=== PATIENT | male | born 1990 | race Caucasian/White ===

== ENCOUNTER 2024-09-07 15:19 | Emergency (ER) | payer OTHER, SELFPAY ==
[2024-09-07 15:21] VITALS: BP 127/88; PULSE 64; RESP 14; TEMP 37; O2SAT 93; BMI 35.2
--- NOTE | 2024-09-07 15:24 | ED_ITS ---
HPI - Back Pain/Injury 2 General: Chief Complaint: Back Pain/Injury Stated Complaint: back pain Time Seen by Provider: 09/07/24 15:20 Source: patient and EMS Mode of arrival: EMS Limitations: no limitations History of Present Illness: Patient is a 34-year-old male presents to ED today with complaint of back injury. Patient states just prior to arrival he was walking on stairs when he accidentally slipped and fell. He states his back struck the corner of the stair. Patient states he was able to get to his knees but could not stand up secondary to pain. Upon arrival he is complaining of mid to lower back pain. He is having a small amount of paresthesias to his left leg. He was given 100 mcg fentanyl for a zofran route. He denies striking his head or LOC. No other complaints at this time. This did occur at work-he works for [employer]. MD elicited complaint: back pain Pertinent past history: recent trauma Onset (ago): hour(s) Timing: constant Severity: severe Similar Symptoms Previously: No Location: lumbar spine, thoracic spine and right lower back Radiation: none Exacerbating factors: movement Relieving factors: none Context: fall Associated symptoms: Reports difficulty walking; Deny abdominal pain, chills, dysuria, fatigue, fever(s) or hematuria Work related injury: Yes Related Data Previous Rx's Medication Instructions Recorded dexamethasone 6 mg tablet 6 mg PO DAILY #6 tabs 09/07/24 hydrocodone 7.5 mg-acetaminophen 1 tab PO .q4-6 PRN pain #20 tabs 09/07/24 325 mg tablet ibuprofen 800 mg tablet 800 mg PO Q8H PRN pain #20 tabs 09/07/24 Allergies Allergy/AdvReac Type Severity Reaction Status Date / Time No Known Allergies Allergy Verified 09/07/24 15:33 Review of Systems 2 Const: Denies: fever(s), chills, body aches, fatigue or malaise Card: Denies: chest pain Resp: Denies: dyspnea GI: Denies: abdominal pain : Denies: flank pain, dysuria, hematuria or testicular pain Musc: Reports: back pain; Denies: neck pain, extremity pain, extremity swelling, joint pain or joint swelling Neuro: Reports: sensory changes (feels like his leg leg is a little numb) and difficulty walking; Denies: headache(s) or weakness in extremities Physical Exam 2 Const: COMMON NORMALS: no acute distress, patient oriented x3, no limitations, alert and well nourished GENERAL APPEARANCE: cooperative NUTRITIONAL APPEARANCE: overweight ORIENTATION/CONSCIOUSNESS: Yes awake, Yes oriented to person, Yes oriented to place and Yes oriented to time HENMT: COMMON NORMALS: normocephalic and atraumatic HEAD & SCALP: normal to inspection, normocephalic and atraumatic Eye: COMMON NORMALS: Equal, round and reactive pupils present and EOMs intact bilaterally GENERAL EYE: appearance normal, both eyes and all related structures and normal light reflex PUPIL: Yes Equal, round and reactive pupils present DIRECT OPHTHALMOSCOPY: Yes normal light reflex Neck/C-Spine: COMMON NORMALS: full ROM GENERAL: Yes normal visual inspection CERVICAL SPINE: Yes cervical ROM normal, No Cervical spine tenderness, No step off deformity and No Paracervical muscle tenderness Chest: COMMONS NORMALS: normal inspection of the chest and normal palpation of entire chest wall Resp: COMMON NORMALS: normal respiratory effort and clear to auscultation bilaterally AUSCULTATION: clear to auscultation bilaterally Cardio: COMMON NORMALS: regular rate and regular rhythm RATE: regular rate RHYTHM: regular rhythm GI: COMMON NORMALS: Normal to inspection, nondistended, normoactive bowel sounds present, Soft to palpation, non-tender, No hepatosplenomegaly present and no masses PALPATION: Yes Soft to palpation and Yes No hepatosplenomegaly present : COMMON NORMALS: Yes no CVA tenderness BLADDER/KIDNEY EXAM: Yes no CVA tenderness Back/Pelvis: COMMON NORMALS: no CVA tenderness LUMBAR SPINE/LOWER BACK: Yes lumbar spinal tenderness and Yes paraspinal muscle tenderness Lumbar paraspinal muscle tenderness: right PELVIS: Yes buttocks normal and No sciatic notch tenderness SACROILIAC JOINTS: Yes SI joints normal COCCYX: no tenderness BACK IMAGE (MALE): 1. TTP/abrasion Extremity: COMMON NORMALS: normal to inspection, capillary refill normal, no joint enlargement, no clubbing, cyanosis or edema, no calf tenderness and no pedal edema GENERAL: Yes normal exam except as noted Neuro: COMMON NORMALS: patient oriented x3, moves all extremities and no focal motor deficits SENSORIUM/ORIENTATION: Yes alert, Yes oriented to person, Yes oriented to place and Yes oriented to time GAIT: Yes Unable to assess gait MOTOR EXAM: 5/5 motor strength present throughout Course 2 Vital Signs: Vital signs: Vital Signs Temperature 98.6 F 09/07/24 15:21 Pulse Rate 59 L 09/07/24 16:40 Respiratory Rate 16 09/07/24 16:40 Blood Pressure 127/88 09/07/24 15:21 Pulse Oximetry 97 09/07/24 16:40 Oxygen Delivery Me thod Room Air 09/07/24 16:40 MDM - Back Pain/Injury Medical Decision Making Patient has acute fractures of his right L1-L3 transverse processes. Pain was controlled here and he was easily ambulated without difficulty or assistance. He feels like the mild paresthesias that he had to his left leg upon presentation are now gone. He has no acute neurologic deficits at time of discharge. Recommend he reach out to his HR department as this did happen while at work. I will have him follow-up with Dr. Pérez. Physical therapy will come and fit him for LSO brace. Medical Records I reviewed the patient's medical records. Labs Radiology Impressions Lumbar Spine CT 09/07/24 15:29 IMPRESSION: Acute fractures of the right L1-L3 transverse processes. Thoracic Spine CT 09/07/24 15:29 IMPRESSION: No acute osseous findings in the thoracic spine. All radiology interpretation(s) finalized by discharge Discharge Plan Discharge Patient Disposition: Home Clinical Impression: Multiple transverse process fractures Condition: Stable Prescriptions: New ibuprofen 800 mg tablet 800 mg PO Q8H PRN (Reason: pain) Qty: 20 0RF dexamethasone 6 mg tablet 6 mg PO DAILY Qty: 6 0RF hydrocodone-acetaminophen 7.5-325 mg tablet 1 tab PO .q4-6 PRN (Reason: pain) Qty: 20 0RF Discharge Orders: Discharge ED (Routine); Ordered 09/07/24 Ordered By: Lisandra Hubbard Referrals: Frantz Renteria MD [Primary Care Provider] - Patient Instructions: Transverse Process Fracture (ED), Opioid Safety, Pain Management Activity Restrictions/Additional Instructions: As we discussed, you need to reach out to your human resource department as this is a Worker's Comp injury. Case management should reach out to you shortly to set you up with Dr. Pérez who is our orthopedic/spinal specialist for further evaluation of your lumbar transverse process fractures. You need to use your LSO brace is much as possible and avoid twisting, bending, lifting as this can exacerbate your back pain. You may take your prescription medications as directed. The hydrocodone can be used sparingly for severe pain. Do not drive if taking opiate pain medication. Stand Alone Forms: Work/School Release Coding Level of Care Code ED Warehouse Logistics Manager for Martin Ramos
--- NOTE | 2024-09-07 15:29 | CTR_ITS ---
PROCEDURE INFORMATION: Exam: CT Thoracic Spine Without Contrast Exam date and time: 09/07/2024 3:55 PM Age: 34 years old Clinical indication: Injury or trauma; Fall; Blunt trauma (contusions or hematomas) TECHNIQUE: Imaging protocol: Computed tomography of the thoracic spine without contrast. Radiation optimization: All CT scans at this facility use at least one of these dose optimization techniques: automated exposure control; mA and/or kV adjustment per patient size (includes targeted exams where dose is matched to clinical indication); or iterative reconstruction. COMPARISON: CT lumbar spine wo con* [id number] 09/07/2024 3:55 PM RADIATION DOSE METRICS: Total DLP (mGy-cm): 1085.4 FINDINGS: Bones/joints: No acute fracture visualized within the thoracic spine. Spinal alignment is intact. Minimal rightward curvature of the thoracic spine. Mild multilevel endplate degenerative changes. Vertebral body heights are maintained. No severe spinal canal stenosis or significant neural foraminal narrowing. Partially imaged right L1 transverse process fracture, better assessed on accompanying CT lumbar spine, reported separately. Soft tissues: Unremarkable. Lungs: Mild dependent atelectasis in bilateral lower lobes. CT/CT thoracic spin wo con* [id number] IMPRESSION: No acute osseous findings in the thoracic spine.
--- NOTE | 2024-09-07 15:29 | CTR_ITS ---
PROCEDURE INFORMATION: Exam: CT Lumbar Spine Without Contrast Exam date and time: 09/07/2024 3:55 PM Age: 34 years old Clinical indication: Injury or trauma; Fall; Blunt trauma (contusions or hematomas); Additional info: Trauma/pain TECHNIQUE: Imaging protocol: Computed tomography of the lumbar spine without contrast. Radiation optimization: All CT scans at this facility use at least one of these dose optimization techniques: automated exposure control; mA and/or kV adjustment per patient size (includes targeted exams where dose is matched to clinical indication); or iterative reconstruction. COMPARISON: CT thoracic spin wo con* [id number] 09/07/2024 3:55 PM RADIATION DOSE METRICS: Total DLP (mGy-cm): 887.2 FINDINGS: Bones/joints: Acute mildly displaced fractures of the right transverse processes at L1-L2 and a nondisplaced fracture of the right transverse process at L3. The vertebral body heights are maintained. Mild disc bulge, ligamentum flavum thickening, and mild bilateral facet arthropathy at L4-L5 and L5-S1 resulting in mild spinal stenosis. Mild bilateral neural foraminal narrowing at L4-L5. Soft tissues: Unremarkable. CT/CT lumbar spine wo con* [id number] IMPRESSION: Acute fractures of the right L1-L3 transverse processes.
[2024-09-07 15:34] VITALS: RESP 16; O2SAT 96
[2024-09-07] MEDS: morphine 4 mg/mL SDV 1 mL IVP (15:34)
[2024-09-07] MEDS: dexamethasone 10 mg/mL INJ IVP (15:38)
[2024-09-07 16:29] VITALS: PULSE 60; RESP 16; O2SAT 97
[2024-09-07] MEDS: ketorolac 30 mg/mL INJ IVP (16:38)
[2024-09-07 16:40] VITALS: PULSE 59; RESP 16; O2SAT 97
--- NOTE | 2024-09-08 08:24 | DCPLANNER ---
Message sent to Ortho for follow up - Multiple Transverse process fxs
== END 2024-09-07 17:40 | disposition home or self-care (01) ==
PROVIDERS: Emergency Provider Physician Assistant; Family Provider Family Medicine; PCP Family Medicine
DX: S32.019A Unspecified fracture of first lumbar vertebra, initial encounter for closed fracture (principal); S32.029A Unspecified fracture of second lumbar vertebra, initial encounter for closed fracture; S32.039A Unspecified fracture of third lumbar vertebra, initial encounter for closed fracture; W10.9XXA Fall (on) (from) unspecified stairs and steps, initial encounter
CPT/HCPCS: 72128; 72131; 96374; 96375; 97760; 99285; J1100; J1885; J2270; L0637

== ENCOUNTER → 2024-09-15 08:26 | Outpatient (BNVA) | payer OTHER, SELFPAY | PROVIDERS: Family Provider Family Medicine; PCP Family Medicine; Referring Provider Physician Assistant; Visit Provider Orthopaedic Surgery | DX: S32.019A Unspecified fracture of first lumbar vertebra, initial encounter for closed fracture (principal); S32.029A Unspecified fracture of second lumbar vertebra, initial encounter for closed fracture; S32.039A Unspecified fracture of third lumbar vertebra, initial encounter for closed fracture; W10.9XXA Fall (on) (from) unspecified stairs and steps, initial encounter | CPT/HCPCS: 72100 ==

== ENCOUNTER → 2024-10-13 09:22 | Outpatient (BNVA) | payer OTHER, SELFPAY | PROVIDERS: Family Provider Family Medicine; PCP Family Medicine; Visit Provider Orthopaedic Surgery | DX: M54.9 Dorsalgia, unspecified (principal) | CPT/HCPCS: 72100 ==

== ENCOUNTER 2024-10-22 14:03 | Emergency (ER) | payer OTHER, SELFPAY ==
--- NOTE | 2024-10-22 14:04 | XR_ITS ---
WS: [id number] Left foot, 4 views including lateral view of the toes, 10/22/2024 Clinical Data: injury Comparison: None. Findings: No fractures or dislocations are seen. No bone destruction or erosion is noted. The joint spaces and soft tissues are normal. The lateral view of the toes show no fractures. XR/XR foot LT min 3V* [id number] Impression: Negative left foot.
[2024-10-22 14:42] VITALS: BP 133/90; PULSE 82; RESP 14; TEMP 36.7; O2SAT 98; BMI 36.6
--- NOTE | 2024-10-22 15:24 | PC.PHAR ---
patient just finished 10 day supply of hydrocodone removed from list
--- NOTE | 2024-10-22 15:59 | ED_ITS ---
HPI - Extremity Problem General: Chief complaint: Extremity Injury, Lower Stated complaint: something in left foot Time Seen by Provider: 10/22/24 15:30 Source: patient Mode of arrival: ambulatory Limitations: no limitations History of Present Illness: Patient is a 34-year-old male that presents to the emergency department with a foreign body in the second toe of the left foot. He states this occurred about 2 days ago when he was walking with his shoes. He is unsure of what the foreign body is but does not think that it is metal. He thinks it may be a wooden splinter. He denies any fever or chills. He denies any redness or red streaking. He denies any numbness or tingling. Patient is unsure of when his last tetanus shot was but refuses tetanus immunization today. I did explain to the patient that if tetanus gets to a certain point we will be unable to stop it. He expressed understanding but still declines tetanus immunization at this time. He presents to the emergency department for further evaluation and treatment. Associated symptoms: Deny chest pain or fever(s) Related Data Previous Rx's Medication Instructions Recorded cephalexin 500 mg capsule 500 mg PO Q6H #20 caps 10/22/24 Allergies Allergy/AdvReac Type Severity Reaction Status Date / Time No Known Allergies Allergy Verified 10/22/24 14:47 Review of Systems Const: Denies: fever(s) or chills Eyes: Denies: change in vision ENMT: Denies: throat pain Card: Denies: chest pain Resp: Denies: dyspnea or wheezing GI: Denies: abdominal pain, nausea or vomiting : Denies: flank pain Musc: Denies: neck pain or back pain Skin/Breast: Reports: other (Soft tissue foreign body in the distal second toe left foot) Neuro: Denies: headache(s), numbness in extremities or weakness in extremities Psych: Denies: anxiety or depression Endo: Denies: change in body appearance Chuckie/Lymph: Denies: easy bruising or easy bleeding All/Imm: Denies: urticaria or tongue swelling PFSH ED 2 PFSH: Social History Smoking and tobacco/nicotine status: unknown if used tobacco/nicotine Physical Exam Const: COMMON NORMALS: no acute distress and patient oriented x3 HENMT: COMMON NORMALS: normocephalic, atraumatic and Normal external nose present HEAD & SCALP: normocephalic and atraumatic NOSE: Normal external nose present GENERAL EAR: hearing not grossly impaired Eye: COMMON NORMALS: conjunctivae normal CONJUNCTIVA: Yes conjunctivae normal Cardio: COMMON NORMALS: regular rate and regular rhythm RATE: regular rate RHYTHM: regular rhythm Neuro: COMMON NORMALS: patient oriented x3 Procedures Foreign Body Removal Site: left and other (2nd toe) Description of foreign body: other (wooden sliver) Sedation/Analgesia: other (1% plain lidocaine, digital block) Technique: removal with forceps (and an 18 gauge needle was used, partial removal) Confirmed by:: direct visualization Post-procedure exam: awake, alert Neurovascular: normal capillary fill and other (there is still retained foreign body) Course Vital Signs: Vital signs: Vital Signs Temperature 98.1 F 10/22/24 14:42 Pulse Rate 82 10/22/24 14:42 Respiratory Rate 14 10/22/24 14:42 Blood Pressure 133/90 10/22/24 14:42 Pulse Oximetry 98 10/22/24 14:42 MDM - Extremity (Nontraumatic) Medical Decision Making Patient was advised of the x-ray and exam findings. There was a small piece of, what appeared to be a wooden sliver, that was removed but the patient has a probable retained foreign body. I recommended he should follow-up with podiatry, Dr. Kaur, for further evaluation and treatment. Will place the patient on Keflex by mouth for the next 5 days to help reduce the risk of infection. He was advised to return to the emergency department with any worsening symptoms such as fever, red streaking, pus draining and follow-up with podiatry for further evaluation and treatment. The patient expressed understanding. Lab Data Radiology Impressions Foot X-Ray 10/22/24 14:04 Impression: Negative left foot. All radiology interpretation(s) finalized by discharge Critical Care Time Critical Care Time: Critical Care Time: No Discharge Plan Discharge Patient Disposition: Home Clinical Impression: Retained foreign body fragment Condition: Stable Prescriptions: New cephalexin 500 mg capsule 500 mg PO Q6H Qty: 20 0RF Discharge Orders: Discharge ED (Routine); Ordered 10/22/24 Ordered By: Fan Bush Referrals: Frantz Renteria MD [Primary Care Provider] - Raphael Kaur DPM [Physician] - Patient Instructions: Opioid Safety, Pain Management, Soft Tissue Foreign Body (ED) Activity Restrictions/Additional Instructions: Take medications as directed. Your prescriptions were sent electronically to [facility] pharmacy in [place]. Use [id number] antibiotic ointment and a sterile dressing (Band-Aid) daily as directed until follow-up. Follow-up with podiatry for further evaluation and treatment. Call for an appointment. Return to the emergency department with any worsening symptoms such as fever, red streaking, pus draining or any other worsening symptoms. Coding Level of Care Code ED Sponge Hooker for Martin Ramos
[2024-10-22] MEDS: lidocaine 1% 10 ML INJ SUBCUT (16:29)
[2024-10-22 16:54] VITALS: BP 156/99; PULSE 71; O2SAT 98
== END 2024-10-22 16:54 | disposition home or self-care (01) ==
PROVIDERS: Emergency Provider Physician Assistant; PCP Family Medicine
DX: S91.342A Puncture wound with foreign body, left foot, initial encounter (principal); X58.XXXA Exposure to other specified factors, initial encounter
CPT/HCPCS: 12345; 73630; 99283

== ENCOUNTER → 2024-11-24 13:23 | Outpatient (BNVA) | payer OTHER, SELFPAY | PROVIDERS: PCP Family Medicine; Visit Provider Orthopaedic Surgery | DX: S32.019A Unspecified fracture of first lumbar vertebra, initial encounter for closed fracture (principal); S32.029A Unspecified fracture of second lumbar vertebra, initial encounter for closed fracture; S32.039A Unspecified fracture of third lumbar vertebra, initial encounter for closed fracture; W10.9XXA Fall (on) (from) unspecified stairs and steps, initial encounter | CPT/HCPCS: 72100 ==

== ENCOUNTER 2025-07-13 15:42 | Emergency (ER) | payer SELFPAY ==
[2025-07-13 15:46] VITALS: BP 147/93; PULSE 89; RESP 18; TEMP 36.7; O2SAT 98
--- NOTE | 2025-07-13 16:10 | ED_ITS ---
HPI - Neck Pain/Injury General: Chief Complaint: General Medical Stated Complaint: Neck pain Time Seen by Provider: 07/13/25 16:00 Source: patient Mode of arrival: ambulatory Limitations: no limitations History of Present Illness: Patient is a 34-year-old male who presents to ED today with a complaint of right sided neck pain that began earlier today while at work. He states he felt normal when he woke up. He denies any obvious injury or trauma but does state he was lifting some type of garage door when it caught and fariha his arm/shoulders. Patient states he is not having any radicular pain into his upper extremities. Denies numbness, tingling, loss of sensation or weakness to his arms. He is not complaining of a severe headache. No recent illness. No fevers. Patient states he is not having any pain if he is not moving his neck. MD complaint: neck pain Onset (ago): hour(s) Place: home and work Radiation: right lateral Severity: moderate Duration: constant Relieving factors: immobilization Exacerbating factors: movement of extremity and movement of neck Associated symptoms: Reports no associated symptoms; Denies headache(s) Treatments prior to arrival: none Related Data Previous Rx's ?Medication ?Instructions ?Recorded ibuprofen 800 mg tablet 800 mg PO Q8H PRN pain #20 t abs 07/13/25 methocarbamol 500 mg tablet 1,000 mg (2 x 500 mg) PO Q 8H #30 07/13/25 tabs methylprednisolone 4 mg tablets in See Rx Instructions PO .COMPLEX 07/13/25 a dose pack (Medrol (Fernando)) #21 ea Allergies Allergy/AdvReac Type Severity Reaction Status Date / Time No Known Allergies Allergy Verified 11/24/24 13:38 Review of Systems Const: Denies: fever(s) or body aches Eyes: Denies: change in vision ENMT: Denies: odynophagia or ear or mastoid pain Musc: Reports: neck pain Neuro: Denies: headache(s), numbness in extremities, weakness in extremities, sensory changes, confusion, behavioral changes or difficulty communicating thoughts PFSH ED PFSH: Social History Smoking and tobacco/nicotine status: former use of tobacco/nicotine Physical Exam Const: COMMON NORMALS: no acute distress, average body habitus, patient oriented x3, no limitations, healthy appearing, alert and well nourished GENERAL APPEARANCE: cooperative ORIENTATION/CONSCIOUSNESS: Yes awake, Yes oriented to person, Yes oriented to place and Yes oriented to time HENMT: COMMON NORMALS: normocephalic and atraumatic HEAD & SCALP: normal to inspection, normocephalic and atraumatic FACE & SINUS: normal facial exam and face symmetric Neck/C-Spine: COMMON NORMALS: no lymphadenopathy and no meningeal signs GENERAL: Yes normal visual inspection, No anterior neck swelling and No submandibular swelling CERVICAL SPINE: Yes cervical ROM abnormal, Yes pain with cervical ROM, No Cervical spine tenderness, Yes Paracervical muscle tenderness right and No Paracervical spasm OTHER: pain with right rotational movement and lateral movements of neck; has fairly normal flexon/extension; negative Kernig's and Brudzinski's pain is reproducible with movement and palpation to R side of neck Back/Pelvis: COMMON NORMALS: thoracic and lumbar spine normal to inspection, no thoracic nor lumbar tenderness and thoraco-lumbar ROM normal Extremity: COMMON NORMALS: normal to inspection and full ROM GENERAL: Yes normal exam except as noted Neuro: COMMON NORMALS: patient oriented x3, moves all extremities, no focal motor deficits and no sensory deficits noted SENSORIUM/ORIENTATION: Yes alert, Yes oriented to person, Yes oriented to place and Yes oriented to time MENINGEAL SIGNS: Yes no meningeal signs Course Vital Signs: Vital signs: Vital Signs Temperature 98.1 F 07/13/25 15:46 Pulse Rate 89 07/13/25 15:46 Respiratory Rate 18 07/13/25 15:46 Blood Pressure 147/93 07/13/25 15:46 Pulse Oximetry 98 07/13/25 15:46 Oxygen Delivery Me thod Room Air 07/13/25 15:46 MDM - Neck Pain/Injury Medical Decision Making Symptoms at this time seem consistent with a right sided cervical sprain/strain/spasm. Patient to be treated with anti-inflammatories, steroids, muscle relaxers. He was given signs and symptoms that should prompt a return emergency evaluation. Otherwise he can follow-up with primary care in 1 to 2 weeks. Differential Diagnosis Likely disc disorder of cervical region, cervical radiculopathy, vertebral artery dissection and strain of neck muscle Medical Records I reviewed the patient's medical records. No radiology studies performed this visit Discharge Plan Discharge Patient Disposition: Home Clinical Impression: Neck pain on right side Condition: Stable Prescriptions: New methocarbamol 500 mg tablet 1,000 mg PO Q8H Qty: 30 0RF ibuprofen 800 mg tablet 800 mg PO Q8H PRN (Reason: pain) Qty: 20 0RF methylprednisolone [Medrol (Fernando)] 4 mg tablets,dose pack See Rx Instructions .ROUTE .COMPLEX Qty: 21 0RF Rx Instructions: orally per package directions Discharge Orders: Discharge ED (Routine); Ordered 07/13/25 Ordered By: Lisandra Hubbard Referrals: Frantz Renteria MD [Primary Care Provider, [facility]] Patient Instructions: Cervical Strain (DC), Neck Pain (ED), Acute Neck Pain (ED), Patient Portal & Real Instructions Activity Restrictions/Additional Instructions: As we discussed, we will try treating neck discomfort with steroids, anti- inflammatories, muscle relaxers. You may also try ice and heat as well as topical therapies such as [id number] Biofreeze. Please follow-up with primary care in one to 2 weeks if symptoms do not seem to be improving. As we discussed, we need to return to the emergency department for onset of severe headache, worsening neck pain or neck stiffness, fevers, generally feeling worse or unwell, or any other concerns you may have. Print Language: Swedish Coding Level of Care Code ED Interdisciplinary Professor for Martin Ramos
--- OUTSIDE RECORDS SUMMARY | 2025-07-13 16:27 | XMS_ITS | Clinical Summary ---
Author Organization [facility] Address [address] [place] [address], [place] [address] Phone Care Team Providers Care [employer] Fund Sales Agent Name Role Phone Unavailable Primary Care Provider Unavailabl e Immunizations Immunization Administration Dates Next Due (M-M-R II/PRIORIX)(12 MO UP) MEASLES, MUMPS AND RUBELLA VIRUS VACCINE, 0.5 ML IM/SUBCUT 11/21/1995,12/30/1991 Dt Dtp Dtap Vaccine 11/21/1995, 2,05/04/1991,1990,1990 HIB, Unspecified Formulation 03/16/1992, 05/04/1991,01/28/1991,1990 Hepatitis B Vaccine 08/06/1996,02/18/1996,1995 IPV/OPV 03/16/1992, 1,01/28/1991,1990 Social History Tobacco Use Types Packs/Day Years Used Date Smoking Tobacco: Never Assessed Sex and Gender Information Value Date Recorded Sex Assigned at Not on file Legal Sex 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 Gender Identity Not on file Sexual Orientation Not on file Last Filed Vital Signs Vital Sign Reading Time Taken Comments Blood Pressure 127/74 11/08/2018 5:46 PM FIRE MANAGEMENT OFFICER Pulse 68 11/08/2018 5:46 PM FIRE MANAGEMENT OFFICER Temperature 36.7 C (98 F) 11/08/2018 5:46 PM FIRE MANAGEMENT OFFICER Respiratory Rate 18 11/08/2018 5:46 PM FIRE MANAGEMENT OFFICER Oxygen Saturation 98% 11/08/2018 5:46 PM FIRE MANAGEMENT OFFICER Inhaled Oxygen Concentration - - Weight 96.2 kg (212 lb 1.3 oz) 11/08/2018 5:46 P M FIRE MANAGEMENT OFFICER Height 170.2 cm (5' 7 ) 11/08/2018 5:46 PM FIRE MANAGEMENT OFFICER Body Mass Index 33.22 11/08/2018 5:46 PM FIRE MANAGEMENT OFFICER Plan of Treatment Health Maintenance Due Date Last Done Comments DTAP/TDAP/TD VACCINES (6 - Tdap) 2001 11/21/1995, 03/15/1992, 05/04/1991, Additional history exists HPV VACCINES (1 - 3-dose SCD M series) 2017 INFLUENZA VACCINE (#1) 2025 HEPATITIS B VACCINES Completed 08/06/1996, 02/18/1996, 11/21/1995 Insurance [facility] 16 CONSOLIDATED FEE UNIT
[2025-07-13] MEDS: orphenadrine 30 mg/mL Inj 2 mL 60 MG IM (16:39)
== END 2025-07-13 17:04 | disposition home or self-care (01) ==
PROVIDERS: Emergency Provider Physician Assistant; PCP Family Medicine
DX: M54.2 Cervicalgia (principal)
CPT/HCPCS: 96372; 99284; J1100; J1885; J2360